=== PATIENT | female | born 1955 | race Caucasian/White ===

== ENCOUNTER → 2019-11-15 09:00 | Outpatient (BNVA) | payer BC, SELFPAY | PROVIDERS: Family Provider Family Medicine; PCP Family Medicine; Visit Provider Family Medicine | DX: D50.8 Other iron deficiency anemias (principal); M79.7 Fibromyalgia; E78.5 Hyperlipidemia, unspecified; G62.9 Polyneuropathy, unspecified; E03.9 Hypothyroidism, unspecified; F06.4 Anxiety disorder due to known physiological condition; R92.8 Other abnormal and inconclusive findings on diagnostic imaging of breast; E78.2 Mixed hyperlipidemia; E55.9 Vitamin D deficiency, unspecified | CPT/HCPCS: 80053; 80061; 82306; 84439; 84443; 85025 ==

== ENCOUNTER → 2020-09-22 09:38 | Outpatient (BNVA) | payer BC, SELFPAY | PROVIDERS: Family Provider Family Medicine; PCP Family Medicine; Visit Provider Family Medicine | DX: E78.2 Mixed hyperlipidemia (principal); D50.8 Other iron deficiency anemias; E03.9 Hypothyroidism, unspecified; F06.4 Anxiety disorder due to known physiological condition; G62.9 Polyneuropathy, unspecified; M79.7 Fibromyalgia | CPT/HCPCS: 80053; 80061; 84439; 84443; 85025 ==

== ENCOUNTER → 2021-12-14 14:43 | Outpatient (BNVA) | payer MEDICARE, SELFPAY | PROVIDERS: Family Provider Family Medicine; PCP Family Medicine; Visit Provider Family Medicine | DX: R05.9 Cough, unspecified (principal) | CPT/HCPCS: 87426 ==

== ENCOUNTER → 2024-12-27 10:26 | Outpatient (BNVA) | payer MEDICARE, SELFPAY | PROVIDERS: Family Provider Family Medicine; PCP Family Medicine; Visit Provider Family Medicine | DX: M17.0 Bilateral primary osteoarthritis of knee (principal); M25.462 Effusion, left knee | CPT/HCPCS: 73562 ==